=== PATIENT | male | born 1965 | race Two or more races ===

== ENCOUNTER 2022-10-09 15:24 | Emergency (ER) | payer BC, OTHER ==
[~2022-10-09] VITALS: Ht 165.1 cm; Wt 98.0 kg
[2022-10-09 15:35] VITALS: BP 120/78; PULSE 89; RESP 18; O2SAT 96
[2022-10-09 16:40] LABS: Urine Bacteria NONE SEEN /hpf (None Seen); Urine Blood 3+ /uL (Negative); Urine Clarity Clear (Clear); Urine Color Yellow (Yellow); Urine Mucus FEW (None Seen); Urine Protein, UAD TRACE (Negative); Urine Specific Gravity 1.022 (1.001-1.035); Urine Urobilinogen Normal (Negative); Urine WBC 1 /hpf (0 - 3)
== END 2022-10-10 07:41 | disposition left against medical advice (07) ==
LOC: ER 15:24
DX: T83.038A Leakage of other urinary catheter, initial encounter (principal); R31.9 Hematuria, unspecified
CPT/HCPCS: 81001